=== PATIENT | female | born 1970 | race Caucasian/White ===

== ENCOUNTER 2021-05-24 05:53 | Emergency (ER) | payer OTHER, SELFPAY ==
[2021-05-24 06:00] VITALS: BP 144/74; PULSE 98; RESP 16; TEMP 36.1; O2SAT 99; BMI 24.9
[2021-05-24 06:19] VITALS: BP 144/74; PULSE 98; RESP 16; TEMP 36.1; O2SAT 99
[2021-05-24 06:43] LABS: COVID-19 Test Negative (Negative); Ethanol 212 mg/dL
--- NOTE | 2021-05-24 07:11 | ED_ITS ---
HPI - Psych General Chief Complaint: Psychiatric Symptoms Stated Complaint: SI/sec 12 Time Seen by Provider: 05/24/21 07:11 Source: patient and EMS Mode of arrival: EMS Limitations: no limitations History of Present Illness HPI Narrative: 50-year-old female brought in by ambulance for evaluation of depression. Patient has been suffering from severe depression for the past few weeks, patient has a some suicidal thoughts without plan, patient was drinking alcohol last night and was intoxicated do not remember much from last night but her mother low call the ambulance to bring her to the hospital for further e valuation for the patient's symptoms. Patient to not drink alcohol on a daily basis only occasionally. Patient never had any mental health related hospitalization or had a diagnosis of depression or any other psychiatric disease. Related Data Home Medications Medication Instructions Recorded Confirmed No Known Home Meds 05/24/21 05/24/21 Allergies Allergy/AdvReac Type Severity Reaction Status Date / Time Penicillins [PENICILLINS] Allergy Intermediate RASH Verified 05/24/21 05:59 penicillin V Allergy Unknown doesn't Verified 05/24/21 05:59 work Review of Systems Review of Systems: All other systems are reviewed and are negative Constitutional: Reports as per HPI and Reports no additional constitutional complaints Eyes: Reports as per HPI and Reports no additional eye complaints Reports system reviewed and no additional complaints, except as documented Cardiovascular: Reports as per HPI and Reports no additional cardiovascular complaints Respiratory: Reports as per HPI and Reports no additional respiratory complaints Gastrointestinal: Reports as per HPI and Reports no additional gastrointestinal complaints Genitourinary: Reports no additional female genitourinary complaints Musculoskeletal: Reports no additional musculoskeletal complaints Skin/Breast: Reports system reviewed and no additional complaints, except as docu Psychiatric: Reports no additional psychiatric complaints Endocrine: Reports no additional endocrine complaints Hematologic/Lymphatic: Reports no additional hematologic/lymphatic complaints Allergic/Immunologic: Reports no additional allergic/immunologic complaints Reports system reviewed and no additional complaints, except as documented and Reports Abnormal speech present [facility] Social History Social History Alcohol intake: unknown Patient Tobacco Use Status: Current everyday Tobacco user Use of substances other than those prescribed or required for medical reasons: Unknown Substance Use Type: Unknown Advance Directives: No Patient : No Physical Exam Vital Signs: Vital Signs: Last Vital Signs Temp 98.7 F 05/24/21 08:35 Pulse 60 05/24/21 08:35 Resp 16 05/24/21 06:19 BP 108/61 05/24/21 08:35 Pulse Ox 99 05/24/21 08:35 BMI result Body Mass Index 24.9 Vital signs have been reviewed as appeared to be correct. Blood pressure normal. Heart rate normal. Respiration rate normal. Temperature normal. Oxygen saturation normal. Appearance: Alert. Oriented X3. No acute distress. Head: Normal external exam. Normocephalic. Atraumatic. No Morgan signs noted. No raccoon eyes noted, right frontal small hematoma was tenderness patient cannot recall where it is from. Eyes: PERRLA. EOMI. Conjunctiva and sclera normal. Eyelids normal. ENT: TM's Normal. Pharynx normal. Uvula midline. Moist mucous membranes. No trismus noted. No drooling noted. No muffled voice noted. Superficial scratch on the right side of the neck patient do not know what it is from Neck: Normal inspection. Neck supple. FROM. No adenopathy. Thyroid Normal. No meningeal signs. No neck mass noted. CVS: Normal heart rate and rhythm. Heart sound normal. No murmurs noted. Pulses normal throughout. Respiratory: No respiratory distress. Painless inspiration. Breath sounds normal. No wheezes/rales/rhonchi noted. Chest nontender. No accessory muscle usage noted or decreased air movement noted. Abdomen: Soft and nontender. Bowel sounds normal in all 4 quadrants. No distention noted. No organomegaly noted. No visible injury noted. Back: No CVA tenderness. Full range of motion noted. Skin: Skin warm and dry. Normal skin color. Normal skin turgor. No rashes/lesions/lacerations noted. Extremities: Superficial abrasion on the right hip with no deformity, able to ambulate and stand. Neuro: Oriented X 3. Cranial nerve exam: II-XII are grossly intact No motor deficit. No sensory deficit. Reflexes normal. Patient Appearance: Appropriate Patient Orientation: Person, Place, Time and Situation Level of Consciousness: Awake, Appropriate and Alert Patient Behavior: Talkative, Cooperative. Mood Description: Depressed, tearful. Affect Description: Flat. Patient Cognition Impaired: No Ability to Follow Directions: Good Speech Pattern: Spontaneous Speech Memory Description: Intact Hallucinations: Not present. Delusions: Not Present Thought Process: Logical. Thought Content: Unremarkable Depressive Symptoms: Increased anxiety. Judgement: Fair Course Reevaluation(s) Reevaluation #1: Patient now is more sober, able to answer question appropriately, patient admitted that she was drunk last night do not recall any of the event happened last night, patient confirms she is not depressed or suicidal now. However patient is sustaining superficial injuries to the head the neck and the right hip but patient do not recall any injury or falling. GCS of 15, patient was observed in the emergency department for more than 6 hours without neurological deficit. Care team input is appreciated patient feels safe to be discharged with her boyfriend going home not feeling suicidal anymore. Time: 12:36 MDM - Psych Lab Data Attestation: I reviewed the patient's lab results. Labs: Lab Results 05/24/21 05/24/21 Range/Units 06:19 06:19 Ethyl Alcohol 212 mg/dL COVID-19 ([facility]ISTI) Negative (Negative) COVID-19 Clin Com See Note Discharge Plan Discharge Clinical Impression: Depression, Alcohol intoxication, Superficial abrasion Patient Disposition: Home, Self-Care Instructions: Contusion in Adults (ED) Prescriptions: No Action No Known Home Meds 0RF
[2021-05-24 08:35] VITALS: BP 108/61; PULSE 60; TEMP 37.1; O2SAT 99
--- NOTE | 2021-05-24 13:37 | MHC.CARE ---
50-year-old female brought in by ambulance on a section 12? for evaluation of reported depressive sxs and possible suicidal ideation. Per triage pt reported feeling depressed and voiced thoughts of suicide. Pt was intoxicated upon arrival (BAL 212). Pt reported she is not consume ETOH daily and declined any mental health hx.? CARE team met w pt at 11a when clinically appropriate to interview. Pt was located in the pod in room 7. Pt was resting calmly and quietly when CARE arrived to perform risk assessment. Pt reported that she is feeling?remorseful and embarrassed of the events last night that lead to her arrival. Pt reported she has no memory of the events and she firmly denied memory of making suicidal statements. Pt recalls only that they went out to a bar near her home and she knows she was intoxicated. Pt voiced many times how shocked she was of her condition and her rendition of events as compared to what she was told happened. Pt has no memory of feeling suicidal or making suicidal statements and was surprised to hear she was referred for this. Pt denied feeling acutely depressed and denied psychiatric hx and is not taking any medications. Pt did state that she went out seeking to drink but did not intend to get so intoxicated. She noted that she has stress associated with losing her father in September and her step mother in the fall which may have triggered her to feel depressed last night but she continued to deny SI or intent. Pt lives with her significant other and his mother both of whom contacted EMS when pt came home intoxicated and making concerning?statements for this is out of character for her. CARE spoke with pts SO (Pranav [phone]) and he supported pt plan to dc home. He stated he was concerned when she was making statements and due to her level of intoxication he felt she needed to seek medical attention.? Pts appearance was slightly disheveled and congruent with reports of intoxication and blurred events. She was oriented x4, and was alert and able to answer questions appropriately once sober. Pt was cooperative for this interview and willing to answer all questions. Pt denied feeling depressed and seemed legitimately shocked hearing that she made SI statements. Pts reported feeling tired and her mood and affect congruent with this report. Pts speech and thought process intact and no psychosis or delusions present. Pt denied feeling aggressive or homicidal thoughts and carries no hx of violence. Pt denied access to weapons in their home or with outside family. Pts judgment fair to good and pt agreed to seek help if needed and will be going home into the care of family for added support. Pt declined need for referrals for OP mental health and she is aware of how to seek crisis help if needed. CARE reviewed signs and sxs to look for with pts significant other as well as with pt if her situation should change. Pt has a planned day off tomorrow and today and stated she looks forward to being at home and getting rest. Family in support of this. Pt reported she planned to return to work Tues. CARE also reviewed the case with on -call Dr Zeng for plan to dc and was in support of plan to dc home as long as family in support as well. ED provider also in support of plan to dc now that pt is sober and denied feeling depressed and without SI plan or intent. Pt was seen prior to dc again by medical and her significant other will be arriving to pick her up. ?
== END 2021-05-24 12:46 | disposition home or self-care (01) ==
PROVIDERS: Emergency Provider Emergency Medicine
DX: F33.1 Major depressive disorder, recurrent, moderate (principal); F10.129 Alcohol abuse with intoxication, unspecified; S00.01XA Abrasion of scalp, initial encounter; Y90.7 Blood alcohol level of 200-239 mg/100 ml; X58.XXXA Exposure to other specified factors, initial encounter; Y93.9 Activity, unspecified; Y92.9 Unspecified place or not applicable; Y99.9 Unspecified external cause status; Z20.822 Contact with and (suspected) exposure to COVID-19; Z79.899 Other long term (current) drug therapy; F17.200 Nicotine dependence, unspecified, uncomplicated; Z71.6 Tobacco abuse counseling
CPT/HCPCS: 82077; 87635; 99285